=== PATIENT | female | born 1990 | race Caucasian/White ===

== ENCOUNTER 2017-02-26 10:58 | Emergency (ER) | payer BC, OTHER ==
[2017-02-26 11:50] LABS: #Eosinphils 0.1 thou/uL (0.0-0.7); #Lymphocytes 2.7 thou/uL (1.20-3.40); #Monocytes 0.7 thou/uL (0.11-0.59); #Neutrophils 4.3 thou/uL (1.40-6.50); %Basophils 0.6 % (0.0-1.0); %Eosinophils 1.8 % (0.0-10.0); %Lymphocytes 34.4 % (21.0-51.0); %Monocytes 8.4 % (0.0-10.0); Hematocrit 40.8 % (36.0-47.0); Mean Platelet Volume 6.1 fL (7.4-10.4); Red Blood Cell (RBC) Count 4.78 mill/uL (4.20-5.40); White Blood Cell (WBC) Count 7.9 thou/uL (4.8-10.8)
[2017-02-26 12:10] LABS: Bilirubin Negative (Negative); Blood, Urine Negative (Negative); Glucose, Urine (Dipstick) Negative (Negative); Ketone, Urine Negative (Negative); Nitrite Negative (Negative); Protein, Urine (Dipstick) Negative (Neg-Trace); Urobilinogen 0.2 mg/dL (0.2-1.0)
[2017-02-26 12:11] LABS: Bacteria/HPF 2+ HPF (None Seen); Hyaline Casts/LPF 0-3 HYALINE CAST LPF (0-3 Hyaline); WBC/HPF 21-50 HPF (0-3)
[2017-02-26 12:12] LABS: ALT (SGPT) 18 U/L (8-55); AST (SGOT) 19 U/L (5-34); Alkaline Phosphatase 150 U/L (40-150); Anion Gap 13 mmol/L (10-20); BUN (Urea Nitrogen) 10 mg/dL (7.0-18.7); Bilirubin, Total 0.3 mg/dL (0.2-1.2); Calc. Creatinine Clearance 0 mL/min (70-130); Calcium 9.4 mg/dL (7.8-10.44); Carbon Dioxide 27 mmol/L (22-29); Chloride 103 mmol/L (98-107); Estimated GFR-MDRD Greater than 90; Globulin 4.2 g/dL (2.4-3.5); Lipase 25 U/L (8-78); Protein, Total 8.3 g/dL (6.0-8.3)
[2017-02-26 12:13] LABS: RBC/HPF 0-3 HPF (0-3)
[2017-02-26] MEDS ORDERED: Sodium Chloride 0.9% 100 ML ONE (14:18)
[2017-02-26] MEDS ORDERED: Ondansetron HCl/PF 4 MG/2 ML Vial ONE (14:18)
[2017-02-26] MEDS ORDERED: Morphine 2 MG/ML SYRINGE ONE (14:18)
[2017-02-26] MEDS ORDERED: cefTRIAXone\\ROCEPHIN 1 GM VIAL ONE (14:18)
[2017-02-26] MEDS ORDERED: cefTRIAXone\\ROCEPHIN 1 GM, Admixture Fee 1 EACH in Sodium Chloride 0.9% 100 ML IVPB SCH (14:45)
--- NOTE | 2017-02-26 14:54 | CT ---
ABDOMEN AND PELVIC CT SCAN WITHOUT IV CONTRAST: History: 26-year-old female with abdominal pain. FINDINGS: Lung bases are clear. Status post cholecystectomy. Visualized liver, pancreas, spleen, and adrenal g lands are unremarkable. No renal calculus or acute obstruction. Normal appearing appendix. No abs cess or abnormal fluid collection or adenopathy. Uterus and adnexa are unremarkable. IMPRESSION: Status post cholecystectomy. No renal calculus or obstruction. No CT evidence for acute appendici tis. Other findings as above. POS: [facility]
== END 2017-02-26 16:27 | disposition home or self-care (01) ==
LOC: ERS 10:58
DX: N10 Acute pyelonephritis (principal); F41.9 Anxiety disorder, unspecified; F32.9 Major depressive disorder, single episode, unspecified
CPT/HCPCS: 36415; 74176; 80053; 81003; 81015; 81025; 83690; 85025; 96361; 96365; 96375; J0696; J2270; J2405; J7050

== ENCOUNTER 2017-08-11 10:42 | Emergency (ER) | payer OTHER ==
[2017-08-11] MEDS ORDERED: Acetaminophen/Codeine 30-300mg Tablet ONE (13:12)
[2017-08-12 22:45] LABS: Chlamydia by PCR Not Detected (NotDetected); GC by PCR Not Detected (NotDetected)
== END 2017-08-11 13:12 | disposition home or self-care (01) ==
LOC: ERS 10:42
DX: L02.215 Cutaneous abscess of perineum (principal); F41.9 Anxiety disorder, unspecified; F32.9 Major depressive disorder, single episode, unspecified
CPT/HCPCS: 87480; 87491; 87510; 87591; 87660; 99283